=== PATIENT | male | born 1980 ===

== ENCOUNTER 2022-03-13 14:50 | Emergency (ER) | payer MEDICAID ==
[~2022-03-13] VITALS: Ht 172.7 cm; Wt 95.5 kg
[2022-03-13 15:00] VITALS: BP 141/80
== END 2022-03-13 15:16 | disposition left against medical advice (07) ==
LOC: ER 14:50
DX: M25.572 Pain in left ankle and joints of left foot (principal); M25.562 Pain in left knee; Z53.21 Procedure and treatment not carried out due to patient leaving prior to being seen by health care provider